=== PATIENT | male | born 1980 | race Caucasian/White ===

== ENCOUNTER 2019-07-20 11:47 | Inpatient (IN) | payer OTHER ==
[~2019-07-20] VITALS: Ht 180.3 cm; Wt 101.2 kg
[2019-07-20 12:05] VITALS: Ht 180.3 cm; Wt 101.2 kg
[2019-07-20 13:16] LABS: BASOPHIL % 0.7 % (0-2); PLATELET COUNT 337 x10^3mcL (130-400); RED CELL DISTRIBUTION WIDTH 13.7 % (11.5-14.5)
[2019-07-20 13:27] LABS: CALCIUM 8.5 mg/dL (8.5-10.1); CARBON DIOXIDE 27.1 mmol/L (21-32); CHLORIDE SERUM 101 mmol/L (98-107); CREATININE SERUM 0.9 mg/dL (0.7-1.3); GFR1 > 60 mL/min; GLUCOSE SERUM 94 mg/dL (74-106); POTASSIUM SERUM 4.4 mmol/L (3.5-5.1); SODIUM SERUM 137 mmol/L (136-145)
[2019-07-20 13:32] LABS: ALBUMIN 4.3 g/dL (3.4-5.0); ALKALINE PHOSPHATASE 108 U/L (46-116); ALT/SGPT 43 U/L (16-63); AST/SGOT 31 U/L (15-37); BILIRUBIN TOTAL 0.5 mg/dL (0.20-1.00); TOTAL PROTEIN, SERUM 8.2 g/dL (6.4-8.2)
[2019-07-20 13:33] LABS: microscopic required? NO
[2019-07-20 14:21] LABS: AMPHETAMINE QUAL UR NONE DETECTED (See below)
[2019-07-20 14:26] LABS: UA SPECIFIC GRAVITY 1.015 (1.005-1.035); urine erythrocyte NEGATIVE (NEGATIVE)
[2019-07-20 20:33] VITALS: BP 133/87
[2019-07-20 22:54] VITALS: BP 133/87
[2019-07-21 05:33] VITALS: BP 117/57
[2019-07-21 07:45] LABS: BASOPHIL % 0.8 % (0-2); PLATELET COUNT 309 x10^3mcL (130-400); RED CELL DISTRIBUTION WIDTH 13.9 % (11.5-14.5)
[2019-07-21 08:15] LABS: CALCIUM 8.4 mg/dL (8.5-10.1); CARBON DIOXIDE 25.8 mmol/L (21-32); CHLORIDE SERUM 102 mmol/L (98-107); CREATININE SERUM 0.9 mg/dL (0.7-1.3); GFR1 > 60 mL/min; GLUCOSE SERUM 75 mg/dL (74-106); POTASSIUM SERUM 3.9 mmol/L (3.5-5.1); SODIUM SERUM 137 mmol/L (136-145); T4(THYROXINE) 7.6 ug/dL (4.7-13.3)
[2019-07-21 09:00] LABS: ERYTHROCYTE SED RATE 5 mm/hr (0-15)
[2019-07-21 09:02] VITALS: BP 123/84
[2019-07-21 12:31] VITALS: BP 124/64
[2019-07-21 15:49] VITALS: BP 124/64
[2019-07-21 17:28] VITALS: BP 124/81
[2019-07-22 05:07] LABS: RAPID PLASMA REAGIN Non Reactive (Non Reactive)
[2019-07-22 09:05] LABS: RHEUMATOID ARTHRITIS FACTOR <10.0 IU/mL (0.0-13.9)
== END 2019-07-21 19:27 | disposition other institution (70) | DRG 69 ==
LOC: ED 11:47 → DU 16:16
PROVIDERS: Emergency Medicine; ADMIT Internal Medicine; ATTEND Internal Medicine
DX: G45.9 Transient cerebral ischemic attack, unspecified (principal); G62.9 Polyneuropathy, unspecified
CPT/HCPCS: 86431; G0378; Q0092; Q9967